=== PATIENT | male | born 1970 | race American Indian/Alaskan Native ===

== ENCOUNTER 2017-06-08 19:37 | Emergency (ER) | payer BC, OTHER ==
[2017-06-08 21:05] VITALS: RESP 16; TEMP 99.1
--- NOTE | 2017-06-08 21:39 | ED PDOC ---
Arrival/HPI - General Historian: Patient - History of Present Illness Time/Duration: < week Symptom Onset: Gradual Symptom Course: Worsening Quality: Aching, Throbbing Severity Level: Moderate Context: Other (last sexual encounter 1 week ago (anal and vaginal sex)) <Eleazar Thompson - Last Filed: 06/08/17 23:00> <Tanner Talavera - Last Filed: 06/10/17 18:50> - General Chief Complaint: Male Genitourinary Time Seen by Provider: 06/08/17 21:25 - History of Present Illness Narrative History of Present Illness (Text): 06/08/17 22:02 46yo M with no significant Past medical history here for right testicular pain, right groin and right back pain. Patient reports that his symptoms started on Thursday (2 days ago) and gradually became worse. He is also complaining of subjective fevers and chills. Denies any nausea, vomiting, diarrhea. Does report some mild constipation. Denies any penile discharge, no penile pain. Reports right testicle swelling and severe pain. No pain during urination. No frequency. No urgency. Last sexual encounter, unprotected, one week ago, anal and vaginal sex, one partner. Partner does not report any symptoms. PMHx: Denies PSHx: Cardiac ablation 8 years ago for symptomatic palpitations Social Hx: Denies tobacco use. Daily Alcohol use, (1-2 beers day). Reports Marijuana use, no other illicit drug use. NKDA (Eleazar Thompson) Past Medical History - Provider Review Nursing Documentation Reviewed: Yes - Past History Past History: No Previous - Past Medical History Past Medical History: No Previous - Psychiatric Hx Substance Use: Yes (marijuana) - Surgical History Other/Comment: surgical procedure to the heart <Eleazar Thompson - Last Filed: 06/08/17 23:00> Family/Social History - Physician Review Nursing Documentation Reviewed: Yes Family/Social History: No Known Family HX Smoking Status: Former Smoker Hx Alcohol Use: Yes Frequency of alcohol use: Few days per week Hx Substance Use: Yes (marijuana) <Eleazar Thompson - Last Filed: 06/08/17 23:00> Allergies/Home Meds <Eleazar Thompson - Last Filed: 06/08/17 23:00> <Tanner Talavera - Last Filed: 06/10/17 18:50> Allergies/Adverse Reactions: Allergies No Known Allergies Allergy (Verified 06/08/17 21:04) Review of Systems - Physician Review All systems were reviewed & negative as marked: Yes - Review of Systems Constitutional: Fevers Eyes: absent: Vision Changes ENT: absent: Hearing Changes Respiratory: absent: SOB, Cough Cardiovascular: absent: Chest Pain, Calf Pain, [place] Gastrointestinal: Abdominal Pain, Nausea. absent: Diarrhea, Vomiting, Anorexia Genitourinary Male: Other (R Testicular pain). absent: Dysuria, Frequency <Eleazar Thompson - Last Filed: 06/08/17 23:00> Physical Exam Vital Signs Reviewed: Yes Temperature: Afebrile Blood Pressure: Normal Pulse: Regular Respiratory Rate: Normal Appearance: Positive for: Well-Appearing, Non-Toxic, Comfortable Pain Distress: Mild Mental Status: Positive for: Alert and Oriented X 3 - Systems Exam Head: Present: Atraumatic, Normocephalic Extroacular Muscles: Present: EOMI Mouth: Present: Moist Mucous Membranes Respiratory/Chest: Present: Clear to Auscultation, Good Air Exchange. No: Respiratory Distress, Accessory Muscle Use, Wheezes, Decreased Breath Sounds, Rales, Rhonchi Cardiovascular: Present: Normal S1, S2. No: Regular Rate and Rhythm Abdomen: No: Tenderness, Distention, Peritoneal Signs, Rebound, Guarding, Hernias Genitourinary Male: Present: Penile Discharge (Expressed some white and clear discharge), Testicle Tenderness (Right testicular swellin, tender to palpation) , Testicle Swelling (right testicular swelling) Upper Extremity: Present: Normal Inspection Neurological: Present: GCS=15, Speech Normal, Gait Normal Skin: Present: Warm, Dry, Normal Color Lymphatic: No: Cervical Adenopathy, Axillary Adenopathy, Inguinal Adenopathy Psychiatric: Present: Alert, Oriented x 3 <Eleazar Thompson - Last Filed: 06/08/17 23:00> Medical Decision Making <Eleazar Thompson - Last Filed: 06/08/17 23:00> <Tanner Talavera P - Last Filed: 06/10/17 18:50> ED Course and Treatment: 06/08/17 22:15 46yo M here with right testicular swelling and pain, in the setting of unprotected anal and vaginal sex 1 week ago. - Urinalysis - GC testing - Testicular Ultrasound - 250mg Rocephin IM - 1g Azithromycin PO - ibuprofen - Reassess and dispo (Eleazar Thompson) Patient Seen With Resident: Patient was seen and evaluated with resident. Came up with plan and treatment together. susp epididymitis. s/o to Dr Gerald pascal US pending. Rx in ED empirically for gc/ chlamydia. Rx levaquin for home. (Tanner Talavera) - Lab Interpretations Lab Results: Lab Results 06/08/17 23:20: Urine Color Yellow, Urine Appearance Sl cloudy, Urine pH 6.0, Ur Specific [place] >= 1.030, Urine Protein Trace H, Urine Glucose (UA) Negative , Urine Ketones 15 H, Urine Blood Small H, Urine Nitrate Negative, Urine Bilirubin Small H, Urine Urobilinogen 0.2, Ur Leukocyte Esterase Trace H, Urine RBC 0 - 2, Urine WBC 5 - 10, Ur Epithelial Cells 0 - 2, Urine Bacteria Rare - RAD Interpretation Radiology Orders: 06/08/17 22:00 TESTES DUPLEX COMPLETE [US] Stat - Medication Orders Current Medication Orders: Discontinued Medications Azithromycin (Zithromax) 1,000 mg PO STAT STA PRN Reason: Protocol Stop: 06/08/17 22:19 Last Admin: 06/08/17 23:30 Dose: 1,000 mg Ceftriaxone Sodium (Rocephin) 250 mg IM STAT STA PRN Reason: Protocol Stop: 06/08/17 22:20 Last Admin: 06/08/17 23:31 Dose: 250 mg Ibuprofen (Motrin Tab) 600 mg PO STAT STA Stop: 06/08/17 21:58 Last Admin: 06/08/17 23:30 Dose: 600 mg <Eleazar Thompson - Last Filed: 06/08/17 23:00> - Scribe Statement The provider has reviewed the documentation as recorded by the Scribe <Tanner Talavera - Last Filed: 06/10/17 18:50> - Scribe Statement Zheng Rosario Provider Scribe Attestation: All medical record entries made by the Scribe were at my direction and personally dictated by me. I have reviewed the chart and agree that the record accurately reflects my personal performance of the history, physical exam, medical decision making, and the department course for this patient. I have also personally directed, reviewed, and agree with the discharge instructions and disposition. (Tanner Talavera) Disposition/Present on Arrival - Present on Arrival Any Indicators Present on Arrival: No History of DVT/PE: No History of Uncontrolled Diabetes: No Urinary Catheter: No History of Decub. Ulcer: No History Surgical Site Infection Following: None - Disposition Have Diagnosis and Disposition been Completed?: No Disposition Time: 23:01 <Eleazar Thompson - Last Filed: 06/08/17 23:00> <Tanner Talavera - Last Filed: 06/10/17 18:50> - Disposition Diagnosis: Epididymitis Disposition: HOME/ ROUTINE Condition: GOOD Discharge Instructions (ExitCare): Epididymitis (ED) Additional Instructions: Please follow up with your doctor this week. Return to the ER for any worsening symptoms or for any other concerns. Prescriptions: levoFLOXacin [Levaquin] 500 mg PO BID #20 tab Referrals: [facility] at [facility] [place] [Outside] - Follow up with primary PCP,NO [Primary Care Provider] - Follow up with primary Forms: [employer] (Hebrew) Physician Patient Turnover - . Patient Signed Over To: Eleazar Duarte Handoff Comments: Pending Testicular Ultrasound <Eleazar Thompson - Last Filed: 06/08/17 23:00>
[2017-06-08] MEDS ORDERED: cefTRIAXone (Rocephin) 250 mg Inj IM STA (22:19)
--- NOTE | 2017-06-09 00:57 | US ---
EXAM: US Scrotum CLINICAL HISTORY: 46 years old, male; Pain; Scrotum pain; Additional info: Right testicular pain TECHNIQUE: Real-time ultrasound of the scrotum with color Doppler and image documentation. COMPARISON: No relevant prior studies available. FINDINGS: Right testicle: No mass. No torsion. Left testicle: No mass. No torsion. Epididymides: Enlarged, heterogeneous, hypervascular body/tail of RIGHT epididymis. Scrotum: Unremarkable. IMPRESSION: 1. Findings suggestive of RIGHT epididymitis.
[2017-06-09 00:59] LABS: URINE BILIRUBIN SMALL (NEGATIVE); URINE BLOOD SMALL (NEGATIVE); URINE GLUCOSE (UA) NEGATIVE (NEGATIVE); URINE LEUKOCYTE ESTERASE TRACE Leu/uL (NEGATIVE); URINE NITRATE NEGATIVE (NEGATIVE); URINE PROTEIN TRACE mg/dL (<30 mg/dL); URINE UROBILINOGEN 0.2 E.U./dL (<1 E.U./dL)
[2017-06-09 01:08] LABS: URINE APPEARANCE SL CLOUDY (CLEAR); URINE COLOR YELLOW (YELLOW)
[2017-06-09 01:15] LABS: URINE RBC 0 - 2 /hpf (0-2)
[2017-06-09 01:19] LABS: URINE EPITHELIAL CELLS 0 - 2 /hpf (0-5)
[2017-06-09 01:20] LABS: URINE BACTERIA RARE (NEG)
[2017-06-09 01:37] VITALS: BP 135/77; PULSE 83; O2SAT 99
== END 2017-06-09 01:30 | disposition home or self-care (01) ==
LOC: ED 19:37
DX: N45.1 Epididymitis (principal)
CPT/HCPCS: 81001; 87491; 87591; 93975; 96372; 99284; J0696

== ENCOUNTER 2018-03-07 11:29 | Emergency (ER) | payer MEDICAID, OTHER ==
[2018-03-07 11:47] VITALS: BP 124/85; PULSE 66; RESP 18; TEMP 97.6; O2SAT 98
[2018-03-07] MEDS ORDERED: Sodium Chloride 0.9% 1,000 ML IV SCH (12:15)
--- NOTE | 2018-03-07 12:19 | ED PDOC ---
Arrival/HPI - General Chief Complaint: Dizziness/Lightheaded Time Seen by Provider: 03/07/18 12:12 Historian: Patient - History of Present Illness Narrative History of Present Illness (Text): 03/07/18 12:16 Pt p/w + sudden onset of b/l hand/arm numbness/tingling, no weakness, + left upper scalp numbness/tingling, + left leg numbness/tingling, pt also felt cloudy /hazy; symptoms onset occurring ~ 1100-1130am; pt's drove patient to the ED immediately for eval; pt states mild diffuse headache; pt states his arm symptoms began on the left arm/hand and subsequently migrated over to his right arm; pt states no focal weakness, no gait changes, no vision changes, no slurr speech, no neck pain, no cp/sob/palpitations, no abd pain, no n/v, no urinary/ bowel changes, no fall/trauma/sick contact, 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 PCP: None right hand dominate pt had a cardiac procedure when he was 10-12 years younger at [facility] ( ablation?) pt smokes weed "sometimes" Time/Duration: Prior to Arrival Symptom Onset: Sudden Symptom Course: Unchanged Activities at Onset: Rest Context: Home Past Medical History - Provider Review Nursing Documentation Reviewed: Yes - Travel History Have you recently traveled outside [place] w/in the past 3 mons?: No - Past History Past History: No Previous - Infectious Disease Hx of Infectious Diseases: None - Past Medical History Past Medical History: No Previous - Psychiatric Hx Substance Use: Yes (marijuana) - Surgical History Hx Cardiac Catheterization: Yes Other/Comment: surgical procedure to the heart Family/Social History - Physician Review Nursing Documentation Reviewed: Yes Family/Social History: No Known Family HX Smoking Status: Former Smoker Hx Alcohol Use: Yes Hx Substance Use: Yes (marijuana) Allergies/Home Meds Allergies/Adverse Reactions: Allergies No Known Allergies Allergy (Verified 03/07/18 11:47) Home Medications: Home Meds Medication Instructions Recorded Confirmed No Known Home Med 03/07/18 03/07/18 Review of Systems - Review of Systems Constitutional: Normal Eyes: Normal. absent: Vision Changes ENT: Normal. absent: Hearing Changes Respiratory: Normal. absent: SOB Cardiovascular: Normal. absent: Chest Pain Gastrointestinal: Normal. absent: Abdominal Pain, Nausea, Vomiting Genitourinary Male: Normal Musculoskeletal: Normal Skin: Normal Neurological: Other (numbness/tingling). absent: Focal Weakness Endocrine: Normal Hemo/Lymphatic: Normal Psychiatric: Normal Physical Exam Vital Signs Reviewed: Yes Vital Signs Temp Pulse Resp BP Pulse Ox 03/07/18 11:43 97.6 F 66 18 124/85 98 Temperature: Afebrile Blood Pressure: Normal Pulse: Regular Respiratory Rate: Normal Appearance: Positive for: Well-Appearing, Non-Toxic, Uncomfortable, Other (alert /awake, GCS = 15, oriented x 3, NAD, resting in bed, mildly uncomfortable, cooperative, follows command with ease) Pain Distress: None Mental Status: Positive for: Alert and Oriented X 3 Finger Stick Blood Glucose: 95 - Systems Exam Head: Present: Atraumatic, Normocephalic Pupils: Present: PERRL, Other (visual field intact b/l, no nystagmus, no photophobia, sclera anicteric) Extroacular Muscles: Present: EOMI Conjunctiva: Present: Normal Ears: Present: Normal Mouth: Present: Moist Mucous Membranes, Normal Teeth, Other (uvula/tongue are midline, no exudate/lesions, no drooling/stridor, no dysphonia) Pharnyx: Present: Normal Nose (External): Present: Atraumatic Nose (Internal): Present: Normal Inspection. No: No Active Bleeding Neck: Present: Normal Range of Motion, Trachea Midline, Other (intact ROM, no midline tenderness, no step off, no nuchal rigidity). No: Meningeal Signs, MIDLINE TENDERNESS, Paraspinal Tenderness Respiratory/Chest: Present: Clear to Auscultation, Good Air Exchange, Other ( CTA b/l, no w/r/r, no accessory muscle use noted, no tachypenia). No: Respiratory Distress, Accessory Muscle Use, Wheezes, Rhonchi Cardiovascular: Present: Regular Rate and Rhythm, Normal S1, S2. No: Murmurs Abdomen: Present: Normal Bowel Sounds, Other (well nourished male, no focal tenderness, no masses/rebound/guarding/rigidity, no vega's sign, no mcburney' s point tenderness) Back: Present: Normal Inspection. No: CVA Tenderness, Midline Tenderness, Paraspinal Tenderness Upper Extremity: Present: Normal Inspection, Normal ROM, NORMAL PULSES, Neurovascularly Intact, Capillary Refill < 2s, Other (strength 5/5 grossly intact b/l) Lower Extremity: Present: Normal Inspection, NORMAL PULSES, Normal ROM, Neurovascularly Intact, Capillary Refill < 2 s, Other (strength 5/5 grossly intact b/l) Neurological: Present: GCS=15, CN II-XII Intact, Speech Normal, Motor Func Grossly Intact, Normal Sensory Function, Normal Cerebellar Funct, Other (no facial asymmetries, NIH stroke scale ~ 0, + ambulatory, no gait disturbances noted) Skin: Present: Warm, Normal Color, Other (cap refill < 1sec, no ulcerations, no petechiae) Psychiatric: Present: Alert, Oriented x 3 Medical Decision Making ED Course and Treatment: 03/07/18 12:10 Impression: b/l arm numbness/tingling, left scalp numbness/tingling, left leg numbness/tingling, feeling cloudy/hazy i have consider all the differential diagnosis regarding pt's chief medical complaints/clinical findings, including but are not limited to: b/l arm numbness /tingling, left scalp numbness/tingling, left leg numbness/tingling, feeling cloudy/hazy A/P: r/o CVA vs TIA vs atypical migraines - labs - iv - xray - ct - code stroke - supportive care - observe/reevaluation 1214 activated code stroke given pt's symptoms I spoke to Dr Cuellar, vocational training teacher neurologists, will evaluate patient and would like ct with/without contrast 03/07/18 12:25 Dr Cuellar evaluated patient, cancelled code stroke, would like drug screen, will continue to monitor patient per nursing staff, pt is now refusing IVL placement, pt states he is deathly afraid of iv/needles pt is refusing all labs and now even Ct scans nursing staff, Dr Cuellar, myself had tried on numerous attempts to convince patient of receiving an IV and continue ED evaluation, pt refused, again stating he is afraid of needles i offered patient an anxiolytic to calm his nerves, but pt refused pt is consulting with his 1235 pt continued to refuse medical treatment/labs/diagnostics pt now would like to leave AMA pt is aware that potential life-threatening illness remains and pt can lose limb /or have CVA/TIA, and worse case scenario, can Pt is aware that he is to see HIS doctor as soon as possible pt is aware that if he changes his mind, he is encouraged to return to ED immediately for further care/management pt expressed understanding 03/07/18 12:43 pt will leave AMA Current NIH stroke scale ~ 0 Re-evaluation Time: 12:43 Reassessment Condition: Improving,but remains with symptoms - Lab Interpretations Narrative Lab Interpretation (Text): 03/07/18 12:48 PT REFUSED Lab Results: Lab Results 03/07/18 11:48: POC Glucose (mg/dL) 95 - RAD Interpretation Narrative RAD Interpretations (Text): 03/07/18 12:[address] head, CTA, cxr Radiology Orders: 03/07/18 12:12 CTA HEAD/NECK CODE STROKE [CT] Stat HEAD W/O (CODE STROKE) [CT] Stat CHEST PORTABLE [RAD] Stat - EKG Interpretation EKG Interpretation (Text): 03/07/18 12:48 NSR at 70 bpm, normal axis, no ectopy, inverted T in leads III, no st changes, otherwise NORMAL EKG; no old ekg to compare with Interpreted by ED Physician: Yes Type: 12 lead EKG Comparison: No previous EKG avail. - Medication Orders Current Medication Orders: Sodium Chloride (Sodium Chloride 0.9%) 1,000 mls @ 100 mls/hr IV .Q10H ALMA ROSA Discontinued Medications Aspirin (Aspirin) 325 mg PO STAT STA Stop: 03/07/18 12:41 NIHSS Stroke Scale 3 - Date/Time Evaluation Performed Date Performed: 03/07/18 Time Performed: 12:10 When Was NIHSS Performed: Code Stroke - How Severe is the Stroke Level of Consciousness: 0=Alert LOC to Questions: 0=Both comments correct LOC to commands: 0=Obeys both correctly Best Gaze: 0=Normal Visual: 0=No visual loss Facial: 0=Normal Motor Arm - Left: 0=No drift Motor Arm - Right: 0=No drift Motor Leg - Left: 0=No drift Motor Leg - Right: 0=No drift Limb Ataxia: 0=Absent Sensory: 0=Normal Best Language: 0=No aphasia Dysarthia: 0=Normal articulation Extinction & Inattention (Neglect): 0=Normal, no object Score: 0 Disposition/Present on Arrival - Present on Arrival Any Indicators Present on Arrival: No History of DVT/PE: No History of Uncontrolled Diabetes: No Urinary Catheter: No History of Decub. Ulcer: No History Surgical Site Infection Following: None - Disposition Have Diagnosis and Disposition been Completed?: Yes Diagnosis: Numbness and tingling in both hands, Numbness and tingling of left leg, Confusion Disposition: AGAINST MEDICAL ADVICE Disposition Time: 12:41 Patient Problems: Current Active Problems Problem Status Onset Confusion Acute Numbness and tingling in both hands Acute Numbness and tingling of left leg Acute Condition: STABLE Print Language: MONGOLIAN Additional Instructions: you are leaving against medical advice potential life-threatening illness remains and pt can lose limb/or worse case, can you are to see your doctor as soon as possible if you change your mind, you are encouraged to return to ED immediately for further care/management Referrals: He Zheng, [Non-Staff] - Follow up with primary [facility] [Outside] - [facility] with primary [facility] [Outside] - Follow up with primary Forms: [employer] (Frisian)
[2018-03-07] MEDS ORDERED: Iodixanol 320 MG/ML 100 ML BOTTLE IV ONE (12:20)
[2018-03-07 13:30] LABS: BARBITURATES, UR NEGATIVE (NEGATIVE); BENZODIAZEPINES, UR NEGATIVE (NEGATIVE); OPIATES, UR NEGATIVE (NEGATIVE); PHENCYCLIDINE, UR NEGATIVE (NEGATIVE)
--- NOTE | 2018-03-07 14:07 | CARD ---
APPROVED REPORT EKG Measurement Heart [id number] <Conclusion> Normal sinus rhythm with sinus arrhythmia Normal ECG
== END 2018-03-07 12:56 | disposition left against medical advice (07) ==
LOC: ED 11:29
DX: R20.2 Paresthesia of skin (principal); R41.0 Disorientation, unspecified
CPT/HCPCS: 82948; 93005; 99285; G0480